=== PATIENT | female | born 1975 | race Caucasian/White ===

== ENCOUNTER 2020-09-26 11:20 | Emergency (ER) | payer BC, OTHER ==
[~2020-09-26] VITALS: Ht 154.9 cm; Wt 56.7 kg
[2020-09-26 11:22] VITALS: BP 149/75
[2020-09-26 11:46] LABS: APPEARANCE,URINE Cloudy (CLEAR); BILIRUBIN,URINE Negative (NEGATIVE); COLOR,URINE Yellow (YELLOW); GLUCOSE, URINE (UA) Negative (NEGATIVE); KETONES,URINE Negative (NEGATIVE); LEUKOCYTE ESTERASE ,URINE Negative (NEGATIVE); NITRATE,URINE Negative (NEGATIVE); OCCULT BLOOD,URINE Negative (NEGATIVE); PH,URINE 5.5 (5.0-8.0); PROTEIN,URINE Negative (NEGATIVE)
[2020-09-26] MEDS ORDERED: KETOROLAC 30MG VIAL (30MG/ML) ONE (11:51)
[2020-09-26] MEDS ORDERED: ONDANSETRON 4MG INJ ONE (11:51)
[2020-09-26 11:52] LABS: BASOPHILS % (AUTO) 0.2 % (0.0-5.0); EOSINOPHILS % (AUTO) 0.2 % (0.0-8.0); LYMPHOCYTES % (AUTO) 15.2 % (21.0-51.0); MEAN CORPUSCULAR HEMOGLOBIN 31.3 pg (27.0-33.0); MEAN CORPUSCULAR HGB CONC 32.5 g/dL (32.0-36.0); MEAN CORPUSCULAR VOLUME 96.3 fL (79-99); MONOCYTES % (AUTO) 4.5 % (3.0-13.0); NEUTROPHILS % (AUTO) 79.5 % (40.0-77.0); PLATELET COUNT (AUTO) 167 K/uL (130-400); RED BLOOD CELL COUNT(AUTO) 4.57 MIL/uL (4.00-5.50); RED CELL DISTRIBUTION WIDTH 11.9 % (11.0-15.5); WHITE BLOOD COUNT (AUTO) 9.3 K/uL (4.8-10.8)
[2020-09-26] MEDS: 0.9%NACL 1000ML 1,000 ML IV SCH ×2 (11:57→14:09)
[2020-09-26 12:00] LABS: CREATININE 0.8 mg/dL (0.5-1.5); POTASSIUM 3.9 mmol/L (3.5-5.1)
[2020-09-26] MEDS ORDERED: KETOROLAC 30MG VIAL (30MG/ML) IV ONE (12:00)
[2020-09-26] MEDS ORDERED: ONDANSETRON 4MG INJ IVP ONE (12:00)
[2020-09-26 12:04] LABS: ALBUMIN 4.5 g/dL (3.5-5.0); BILIRUBIN,TOTAL 0.3 mg/dL (0.2-1.0); TOTAL PROTEIN, SERUM 7.8 g/dL (6.0-8.3)
[2020-09-26 12:05] LABS: BACTERIA,URINE Rare /HPF (None Seen); MUCUS,URINE Few LPF (None Seen); RBC,URINE 0-1 /HPF (0-1); SQUAMOUS EPITHELIAL CELL,UR Moderate /HPF (0-2); WBC,URINE 0-1 /HPF (0-1)
[2020-09-26] MEDS ORDERED: MORPHINE 4 MG SYG ONE ×2 (12:21→16:35)
[2020-09-26] MEDS ORDERED: DICY20TA2 PO (16:32)
[2020-09-26] MEDS ORDERED: NAPR-1180 PO (16:32)
[2020-09-26] MEDS ORDERED: ONDA4TAB4 PO (16:32)
[2020-09-26 16:43] VITALS: BP 126/65
== END 2020-09-26 17:14 | disposition home or self-care (01) ==
LOC: EDH 11:20
DX: R10.31 Right lower quadrant pain (principal); Z90.710 Acquired absence of both cervix and uterus
CPT/HCPCS: 36415; 74176; 76830; 76856; 80053; 81001; 82150; 83690; 85025; 96361; 96374; 96375; 96376; 99285; J1885; J2270 ×2; J2405; J7030